=== PATIENT | male | born 1990 | race Hispanic/Latino ===

== ENCOUNTER 2022-12-03 15:35 | Emergency (ER) | payer SELFPAY | END 2022-12-03 20:40 | disposition home or self-care (01) | LOC: ERS 15:35 | DX: J02.9 Acute pharyngitis, unspecified (principal); F17.210 Nicotine dependence, cigarettes, uncomplicated | CPT/HCPCS: 87081; 87430; 99283 ==

== ENCOUNTER 2024-04-25 17:17 | Emergency (ER) | payer SELFPAY | END 2024-04-25 17:59 | disposition home or self-care (01) | LOC: ERS 17:17 | DX: L02.211 Cutaneous abscess of abdominal wall (principal); F17.210 Nicotine dependence, cigarettes, uncomplicated | CPT/HCPCS: 99282 ==